=== PATIENT | male | born 1990 | race Caucasian/White ===

== ENCOUNTER 2017-05-14 23:18 | Emergency (ER) | payer OTHER ==
[2017-05-14] MEDS ORDERED: LORazepam 2 MG/ML INJ IV STA (23:50)
[2017-05-15 00:05] LABS: Basophils % (A) 0 %; Eosinophils # (A) 0.1 k/uL (0-0.7); Eosinophils % (A) 1 %; HCT 46.8 % (39.0-53.0); HGB 15.9 gm/dL (13.0-17.5); Lymphocytes # (A) 2.7 k/uL (1.0-4.8); Lymphocytes % (A) 31 %; MCH 32.2 pg (25.0-35.0); MCHC 33.9 g/dL (31.0-37.0); MCV 95.1 fL (80.0-100.0); Mean Platelet Volume 7.1; Monocytes # (A) 0.6 k/uL (0-1.0); Monocytes % (A) 7 %; Neutrophils % (A) 59 %; Platelet Count 209 k/uL (150-450); RBC 4.92 m/uL (4.30-5.90); WBC 8.5 k/uL (3.8-10.6)
[2017-05-15 00:14] VITALS: TEMP 98
[2017-05-15 00:19] LABS: Amphetamine Screen,Urine Not Detected (NotDetected); Barbiturate Screen,Urine Not Detected (NotDetected); Benzodiazepines Screen,Urine Not Detected (NotDetected); Cocaine Screen,Urine Not Detected (NotDetected); Methadone Screen, Urine Not Detected (NotDetected); Opiate Screen,Urine Not Detected (NotDetected); Oxycodone Screen, Urine Not Detected (NotDetected); Phencyclidine Screen,Urine Not Detected (NotDetected); Tricyclic Antidepressant,Urine Not Detected (NotDetected); Urn Cannabinoid Scrn Not Detected (NotDetected)
[2017-05-15 00:20] LABS: ALT 52 U/L (21-72); AST 35 U/L (17-59); Albumin 4.3 g/dL (3.5-5.0); Alkaline Phosphatase 69 U/L (38-126); Anion Gap 15 mmol/L; Blood Urea Nitrogen 6 mg/dL (9-20); Calcium 8.8 mg/dL (8.4-10.2); Carbon Dioxide 23 mmol/L (22-30); Chloride 105 mmol/L (98-107); Glucose 67 mg/dL (74-99); Phenytoin (Dilantin) <3.0 ug/mL; Sodium 143 mmol/L (137-145); Total Bilirubin 0.3 mg/dL (0.2-1.3); Total Protein 7.7 g/dL (6.3-8.2)
[2017-05-15 00:21] LABS: Alcohol 209 mg/dL
[2017-05-15] MEDS ORDERED: DEXTROSE 50%-WATER 50 ML SYRINGE IVP STA (00:29)
[2017-05-15] MEDS ORDERED: PHENYTOIN SODIUM EXTENDED 100 MG CAP PO STA ×2 (00:29→03:07)
[2017-05-15 02:04] VITALS: RESP 18
--- NOTE | 2017-05-15 02:10 | ED ---
Seizure HPI - General Chief Complaint: Seizure Stated Complaint: Seizure Time Seen by Provider: 05/14/17 23:24 Source: patient, EMS Mode of arrival: EMS Limitations: no limitations - History of Present Illness Initial Comments: This patient's 27-year-old man who is visiting here in town from his home in [place]. He reportedly has history of generalized tonic-clonic seizures and states that he takes phenytoin but has been out of medication. Patient denies trauma. EMS has reportedly given Versed during transport. MD Complaint: seizure -: minutes(s) Description of Episode: tonic-clonic movement -: second(s) Witnessed: yes - by bystander, yes - by EMS Trauma: No Seizure History: known seizure disorder Place: other Possible Precipitating Event: other (Out of medications) Associated Symptoms: denies other symptoms Treatments Prior to Arrival: benzodiazepines - Related Data Previous Rx's Medication Instructions Recorded Phenytoin Sodium Extended 100 mg PO TID #45 capsule 05/15/17 [Dilantin] Allergies Allergy/AdvReac Type Severity Reaction Status Date / Time No Known Allergies Allergy Verified 05/15/17 00:46 Review of Systems ROS Statement: Those systems with pertinent positive or pertinent negative responses have been documented in the HPI. ROS Other: All systems not noted in ROS Statement are negative. Constitutional: Denies: fever, weakness Eyes: Denies: vision change Respiratory: Denies: cough, dyspnea Cardiovascular: Denies: chest pain Gastrointestinal: Denies: abdominal pain, vomiting, diarrhea Genitourinary: Denies: dysuria Musculoskeletal: Denies: back pain Skin: Denies: rash Neurological: Denies: headache, weakness, numbness, paresthesias Past Medical History Past Medical History: Seizure Disorder History of Any Multi-Drug Resistant Organisms: None Reported Past Surgical History: No Surgical Hx Reported Past Psychological History: No Psychological Hx Reported Smoking Status: Current every day smoker Past Alcohol Use History: Heavy Past Drug Use History: None Reported General Exam Limitations: no limitations General appearance: alert, in no apparent distress, appears intoxicated Head exam: Present: atraumatic, normocephalic Eye exam: Present: normal appearance, PERRL, EOMI. Absent: scleral icterus, conjunctival injection ENT exam: Present: normal oropharynx Neck exam: Present: normal inspection, full ROM. Absent: tenderness, meningismus Respiratory exam: Present: normal lung sounds bilaterally. Absent: respiratory distress, wheezes, rales, rhonchi, stridor Cardiovascular Exam: Present: regular rate, normal rhythm, normal heart sounds. Absent: systolic murmur, diastolic murmur, rubs, gallop GI/Abdominal exam: Present: soft. Absent: distended, tenderness, guarding, rebound, rigid Extremities exam: Present: normal inspection, normal capillary refill. Absent: tenderness, pedal edema, calf tenderness Back exam: Absent: CVA tenderness (R), CVA tenderness (L), vertebral tenderness Neurological exam: Present: alert, oriented X3, motor sensory deficit. Absent: CN II-XII intact Skin exam: Present: warm, dry, intact, normal color. Absent: rash Course Vital Signs 05/14/17 05/15/17 05/15/17 23:19 00:14 00:45 Temperature 98.1 F 98 F Pulse Rate 108 H 100 100 Respiratory 20 20 16 Rate Blood Pressure 128/81 137/80 118/58 O2 Sat by Pulse 99 98 98 Oximetry 05/15/17 05/15/17 05/15/17 01:00 02:00 04:16 Temperature 98 F Pulse Rate 96 87 78 Respiratory 16 18 18 Rate Blood Pressure 118/55 103/58 123/67 O2 Sat by Pulse 97 98 97 Oximetry Medical Decision Making - Medical Decision Making Patient is 27-year-old man with history of generalized tonic-clonic seizures. Brought by EMS after he reportedly had seizure. I did observe the patient on during one of these episodes shaking and does not appear consistent with classic seizure activity. In addition he is conversant following the episode. 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 Given that the patient however does take Dilantin and is out of his medication will load the patient with owing dose of Dilantin given the possibility of seizures different etiologies. Patient to follow-up with his neurologist, given local neurologist information should he not be able to return home to [place] - Lab Data Result diagrams: 05/14/17 23:55 05/14/17 23:55 Lab Results 05/14/17 05/14/17 05/14/17 Range/Units 23:55 23:55 23:55 WBC 8.5 (3.8-10.6) k/uL RBC 4.92 (4.30-5.90) m/uL Hgb 15.9 (13.0-17.5) gm/dL Hct 46.8 (39.0-53.0) % MCV 95.1 (80.0-100.0) fL MCH 32.2 (25.0-35.0) pg MCHC 33.9 (31.0-37.0) g/dL RDW 12.0 (11.5-15.5) % Plt Count 209 (150-450) k/uL Neutrophils % 59 % Lymphocytes % 31 % Monocytes % 7 % Eosinophils % 1 % Basophils % 0 % Neutrophils # 5.0 (1.3-7.7) k/uL Lymphocytes # 2.7 (1.0-4.8) k/uL Monocytes # 0.6 (0-1.0) k/uL Eosinophils # 0.1 (0-0.7) k/uL Basophils # 0.0 (0-0.2) k/uL Sodium 143 (137-145) mmol/L Potassium 4.0 (3.5-5.1) mmol/L Chloride 105 (98-107) mmol/L Carbon Dioxide 23 (22-30) mmol/L Anion Gap 15 mmol/L BUN 6 L (9-20) mg/dL Creatinine 0.70 (0.66-1.25) mg/dL Est GFR (MDRD) Af Amer >60 (>60 ml/min/1.73 sqM) Est GFR (MDRD) Non-Af >60 (>60 ml/min/1.73 sqM) Glucose 67 L (74-99) mg/dL Calcium 8.8 (8.4-10.2) mg/dL Magnesium (1.6-2.3) mg/dL Total Bilirubin 0.3 (0.2-1.3) mg/dL AST 35 (17-59) U/L ALT 52 (21-72) U/L Alkaline Phosphatase 69 (38-126) U/L Total Protein 7.7 (6.3-8.2) g/dL Albumin 4.3 (3.5-5.0) g/dL Urine Opiates Screen Not Detected (NotDetected) Ur Oxycodone Screen Not Detected (NotDetected) Urine Methadone Screen Not Detected (NotDetected) Ur Propoxyphene Screen Not Detected (NotDetected) Ur Barbiturates Screen Not Detected (NotDetected) Phenytoin <3.0 ug/mL U Tricyclic Antidepress Not Detected (NotDetected) Ur Phencyclidine Scrn Not Detected (NotDetected) Ur Amphetamines Screen Not Detected (NotDetected) U Methamphetamines Scrn Not Detected (NotDetected) U Benzodiazepines Scrn Not Detected (NotDetected) Urine Cocaine Screen Not Detected (NotDetected) U Marijuana (THC) Screen Not Detected (NotDetected) Serum Alcohol 209 mg/dL 05/14/17 Range/Units 23:55 WBC (3.8-10.6) k/uL RBC (4.30-5.90) m/uL Hgb (13.0-17.5) gm/dL Hct (39.0-53.0) % MCV (80.0-100.0) fL MCH (25.0-35.0) pg MCHC (31.0-37.0) g/dL RDW (11.5-15.5) % Plt Count (150-450) k/uL Neutrophils % % Lymphocytes % % Monocytes % % Eosinophils % % Basophils % % Neutrophils # (1.3-7.7) k/uL Lymphocytes # (1.0-4.8) k/uL Monocytes # (0-1.0) k/uL Eosinophils # (0-0.7) k/uL Basophils # (0-0.2) k/uL Sodium (137-145) mmol/L Potassium (3.5-5.1) mmol/L Chloride (98-107) mmol/L Carbon Dioxide (22-30) mmol/L Anion Gap mmol/L BUN (9-20) mg/dL Creatinine (0.66-1.25) mg/dL Est GFR (MDRD) Af Amer (>60 ml/min/1.73 sqM) Est GFR (MDRD) Non-Af (>60 ml/min/1.73 sqM) Glucose (74-99) mg/dL Calcium (8.4-10.2) mg/dL Magnesium 2.0 (1.6-2.3) mg/dL Total Bilirubin (0.2-1.3) mg/dL AST (17-59) U/L ALT (21-72) U/L Alkaline Phosphatase (38-126) U/L Total Protein (6.3-8.2) g/dL Albumin (3.5-5.0) g/dL Urine Opiates Screen (NotDetected) Ur Oxycodone Screen (NotDetected) Urine Methadone Screen (NotDetected) Ur Propoxyphene Screen (NotDetected) Ur Barbiturates Screen (NotDetected) Phenytoin ug/mL U Tricyclic Antidepress (NotDetected) Ur Phencyclidine Scrn (NotDetected) Ur Amphetamines Screen (NotDetected) U Methamphetamines Scrn (NotDetected) U Benzodiazepines Scrn (NotDetected) Urine Cocaine Screen (NotDetected) U Marijuana (THC) Screen (NotDetected) Serum Alcohol mg/dL - EKG Data -: EKG Interpreted by Me EKG shows normal: sinus rhythm, axis (Normal), intervals (UT interval and QRS duration normal, the QTC is 487 ms, prolonged.), QRS complexes (Normal), ST-T waves (Normal) Rate: normal (Rate approximate 68 bpm) Disposition Clinical Impression: Generalized seizure Disposition: HOME SELF-CARE Condition: Good Instructions: Recurrent Seizures in Adults (ED) Prescriptions: Phenytoin Sodium Extended [Dilantin] 100 mg PO TID #45 capsule Referrals: None,Stated [Primary Care Provider] - 1-2 days
[2017-05-15 04:17] VITALS: BP 123/67; PULSE 78
== END 2017-05-15 04:17 | disposition home or self-care (01) ==
LOC: EC 23:18
DX: G40.909 Epilepsy, unspecified, not intractable, without status epilepticus (principal); F17.200 Nicotine dependence, unspecified, uncomplicated
CPT/HCPCS: 36415; 93005; 80053; 80185; 83735; 85025; 80306; 80320; 99284; 96374; 96375; J2060